=== PATIENT | female | born 2000 | race Caucasian/White ===

== ENCOUNTER 2023-10-07 21:11 | Emergency (ER) | payer MEDICAID, SELFPAY ==
[2023-10-07 21:20] VITALS: BP 152/72; PULSE 68; RESP 16; TEMP 37.1; O2SAT 100
[2023-10-07] MEDS: Methocarbamol 500 MG TAB 1000 MG PO (22:15)
[2023-10-07] MEDS: Acetaminophen 500 MG TAB 1000 MG PO (22:15)
[2023-10-07] MEDS: Ketorolac 10 MG TAB PO (22:15)
[2023-10-07] MEDS: Lidocaine 5% Patch 1 PATCH TP (22:15)
--- NOTE | 2023-10-07 23:22 | ED.GENADUL_ITS ---
HPI General Date/Time Provider Initiated Documentation: 10/07/23 22:13 . Limitations to Documentation: no limitations . Information obtained by: patient . HPI Narrative: 23-year-old female without significant past medical history presents for evaluation of back pain. Symptoms started yesterday. She states that she was taking a shower when it started. No heavy lifting. No new activities or other changes that may have started this pain. She denies any numbness or tingling or radiation down her arm. Pain is localized to the middle of her back, particularly on the right side. She is taken Motrin for relief but not tried anything else. Related Data Home Medications Medication Instructions Recorded Confirmed lidocaine 5 % topical patch 1 patch topical DAILY #15 ea 10/07/23 (Lidoderm) methocarbamol 500 mg tablet 500 mg PO TID PRN spasm #20 tabs 10/07/23 Previous Rx's Medication Instructions Recorded lidocaine 5 % topical patch 1 patch topical DAILY #15 ea 10/07/23 (Lidoderm) methocarbamol 500 mg tablet 500 mg PO TID PRN spasm #20 tabs 10/07/23 Allergies Allergy/AdvReac Type Severity Reaction Status Date / Time No Known Allergies Allergy Unverified 10/07/23 21:26 General Stated Complaint: Nk/Back Pain VINEET: 4 Exam Narrative Exam Narrative: Review of Systems: All systems reviewed & are unremarkable except as noted in HPI and below Well-developed, no acute distress NCAT PERRL, normal conjunctiva RRR Unlabored respiratory effort Nondistended abdomen Extremities w/o deformity, no cyanosis, no edema Right-sided parascapular muscle spasm No rashes or lesions. no focal neurologic deficits Appropriate mood and affect Course Vital Signs Vital signs: Vital Signs Temperature 37.1 C 10/07/23 21:20 Pulse 68 10/07/23 21:20 Respiratory Rate 16 10/07/23 21:20 Blood Pressure 152/72 H 10/07/23 21:20 Pulse Oximetry 100 10/07/23 21:20 Temperature 37.1 C 10/07/23 21:20 Temperature Source Temporal Artery Scan 10/07/23 21:20 Pulse 68 10/07/23 21:20 Respiratory Rate 16 10/07/23 21:20 Respiratory Effort Normal 10/07/23 21:25 Blood Pressure 152/72 H 10/07/23 21:20 Blood Pressure Position Sitting 10/07/23 21:20 Pulse Oximetry 100 10/07/23 21:20 Oxygen Delivery Method Room Air 10/07/23 21:20 Oxygen Flow Rate 0 10/07/23 21:20 Pain Level 8 10/07/23 22:39 Medical Decision Making Emergent evaluation of muscle spasm. Atraumatic onset. No neurologic findings. No skin changes to indicate infectious etiology. Will treat with anti- inflammatories, muscle relaxer and topical Lidoderm patch. Prescription sent to the pharmacy. Follow-up with primary care as needed. Further supportive care guidance provided to the patient. Quality:SDOH Health Related Social Needs: No Data to Display PFSH All Active Problems Muscle spasm (Acute) Social History Smoking/Tobacco Use Status: Never Smoking risk assessment performed?: Yes Substance use type: does not use Discharge Plan Disposition Patient Disposition: Home Condition: Good Discharge Details Clinical Impression: Muscle spasm Primary Care Provider: Unknown,Unknown ED Provider: Ellie Guzman Home Meds and New Rx's Prescriptions: New methocarbamol 500 mg tablet 500 mg PO TID PRN (Reason: spasm) Qty: 20 0RF lidocaine [Lidoderm] 5 % adhesive patch,medicated 1 patch topical DAILY Qty: 15 0RF Rx Instructions: leave on most painful area for up to 12 hrs Discharge Instructions Instructions: Muscle Spasm (ED) Additional Instructions: please take medications as prescribed . Continue 600 mg of Motrin every 6 hours and 1 g of Tylenol every 4 hours, not to exceed 4 g of Tylenol in a 24-hour. continue warm compress, gentle stretching and massage of the area
== END 2023-10-07 22:40 | disposition home or self-care (01) ==
PROVIDERS: Emergency Provider Emergency Medicine
DX: M54.6 Pain in thoracic spine (principal); M62.838 Other muscle spasm
CPT/HCPCS: 99283